=== PATIENT | female | born 1990 | race African-American/Black ===

== ENCOUNTER 2021-02-01 10:57 | Emergency (ER) | payer OTHER ==
[2021-02-01 11:45] VITALS: BP 118/74; PULSE 64; TEMP 97.7; BMI 32.5
[2021-02-01] MEDS ORDERED: KETOROLAC TROMETHAMINE 30 MG/1 ML VIAL IM ONE (12:27)
[2021-02-01] MEDS ORDERED: METHOCARBAMOL 500 MG TABLET PO ONE (12:27)
[2021-02-01] MEDS ORDERED: KETOROLAC TROMETHAMINE 30 MG/1 ML VIAL ONE (12:30)
[2021-02-01] MEDS ORDERED: METHOCARBAMOL 500 MG TABLET ONE (12:30)
== END 2021-02-01 13:15 | disposition home or self-care (01) ==
LOC: JERFT 10:57
PROC: 3E0233Z Introduction of Anti-inflammatory into Muscle, Percutaneous Approach (ICD-10-PCS; principal; 2021-02-01)
DX: M54.2 Cervicalgia (principal); V47.5XXA Car driver injured in collision with fixed or stationary object in traffic accident, initial encounter
CPT/HCPCS: 72050-TC-FY; 99284-25

== ENCOUNTER 2022-06-18 14:37 | Emergency (ER) | payer OTHER ==
[2022-06-18 15:24] VITALS: BP 105/53; PULSE 69; RESP 18; TEMP 98.2; BMI 34.0
[2022-06-18] MEDS ORDERED: KETOROLAC TROMETHAMINE 30 MG/1 ML VIAL IM ONE (16:22)
[2022-06-18] MEDS ORDERED: KETOROLAC TROMETHAMINE 30 MG/1 ML VIAL ONE (16:23)
== END 2022-06-18 19:13 | disposition home or self-care (01) ==
LOC: JERFT 14:37 → JER 14:37 → JERFT 19:13
PROC: 3E0233Z Introduction of Anti-inflammatory into Muscle, Percutaneous Approach (ICD-10-PCS; principal; 2022-06-18)
DX: M79.10 Myalgia, unspecified site (principal); M79.622 Pain in left upper arm; M25.512 Pain in left shoulder; R07.89 Other chest pain; Y04.8XXA Assault by other bodily force, initial encounter; Y92.219 Unspecified school as the place of occurrence of the external cause
CPT/HCPCS: 71046-TC-FY; 73030-TC-LT-FY; 93005; 93010; 99284-25